=== PATIENT | male | born 1945 | race American Indian/Alaskan Native ===

== ENCOUNTER 2018-08-13 16:36 | Inpatient (IN) | payer MEDICARE ==
[2018-08-13] MEDS ORDERED: ASPIRIN PO ONE (17:06)
--- NOTE | 2018-08-13 17:27 | Emergency Department Report ---
ED Chest Pain HPI - General Chief Complaint: Chest Pain Stated Complaint: CHEST PAIN Time Seen by Provider: 08/13/18 17:21 Source: EMS Mode of arrival: Ambulatory Limitations: No Limitations - History of Present Illness Initial Comments: Patient is a 73-year-old male that since emergency room with complaints of severe crushing chest pain in the center chest radiating to his neck. Patient states the symptoms started an hour ago and were 10 out of 10 and after rest the symptoms have improved now to 100%. Patient describes the pain at this time as a pressure. Patient states that when the chest pain started he was working in his yard and developed crushing chest pain that radiated to his neck, diaphoresis and nausea. Patient states he also felt palpitations. Patient states he sat down and called 911 to bring him to the hospital. Patient states that since resting his pain is improved. Patient states the pain is better with rest and worse with exertion. MD Complaint: chest pain -: Sudden Onset: during exertion Pain Location: substernal, left chest Pain Radiation: neck Severity: mild Severity scale (0 -10): 1 Consistency: other (improving) Improves With: rest Worsens With: exertion re: nausea, diaphoresis, dyspnea. denies: vomting, sense of impending doom Other Symptoms: palpitations. denies: cough, fever, syncope, rash, acid taste in mouth, leg swelling, burping Treatments Prior to Arrival: none Aspirin use within the Past 7 Days: (1) Yes - Related Data On Oral Contraceptives: No Home Medications Medication Instructions Recorded Confirmed Last Taken Clopidogrel [Plavix] 75 mg PO QDAY 12/16/17 08/13/18 1 Day Ago ~12/15/17 Hydroxyurea [Hydrea] 500 mg PO BID 12/16/17 08/13/18 1 Day Ago ~12/15/17 Oxycodone HCl/Acetaminophen 1 each PO TID PRN 12/16/17 08/13/18 1 Day Ago [Percocet 10/325 mg] ~12/15/17 amLODIPine [Norvasc] 10 mg PO DAILY 12/16/17 08/13/18 1 Day Ago ~12/15/17 hydroCHLOROthiazide [HCTZ] 12.5 mg PO QDAY 12/16/17 08/13/18 1 Day Ago ~12/15/17 Aspirin [Aspirin EC] 81 mg PO DAILY 08/13/18 08/13/18 Unknown Allergies Allergy/AdvReac Type Severity Reaction Status Date / Time fentanyl [From Duragesic] AdvReac Vomiting Verified 12/16/17 10:13 Penicillins AdvReac Seizure Verified 12/16/17 10:12 Heart Score - HEART Score History: Highly suspicious EKG: Normal Age: > 65 Risk factors: No known risk factors Troponin: < normal limit HEART Score: 4 ED Review of Systems ROS: Stated complaint: CHEST PAIN Other details as noted in HPI Constitutional: diaphoresis. denies: chills, fever Eyes: denies: eye pain, eye discharge, vision change ENT: denies: ear pain, throat pain Respiratory: denies: cough, shortness of breath, wheezing Cardiovascular: chest pain, palpitations Endocrine: no symptoms reported Gastrointestinal: nausea. denies: abdominal pain, diarrhea Genitourinary: denies: urgency, dysuria Musculoskeletal: denies: back pain, joint swelling, arthralgia Skin: denies: rash, lesions Neurological: denies: headache, weakness, paresthesias Psychiatric: denies: anxiety, depression Hematological/Lymphatic: denies: easy bleeding, easy bruising ED Past Medical Hx - Past Medical History Previous Medical History?: Yes Hx Hypertension: Yes Hx CVA: No Hx Heart Attack/AMI: No Hx Congestive Heart Failure: No Hx Diabetes: No Hx Deep Vein Thrombosis: No Hx Pulmonary Embolism: No Hx GERD: No Hx Liver Disease: No Hx Renal Disease: No Hx of Cancer: No Hx Sickle Cell Disease: No Hx Arthritis: Yes Hx Headaches / Migraines: No Hx Seizures: No Hx Kidney Stones: No Hx Psychiatric Treatment: No Hx Asthma: No Hx COPD: No Hx Tuberculosis: No Hx Dementia: No Hx HIV: No 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 - Surgical History Past Surgical History?: No Hx Coronary Stent: No Hx Open Heart Surgery: No Hx Pacemaker: No Hx Internal Defibrillator: No Hx Cholecystectomy: No Hx Appendectomy: No Hx Breast Surgery: No - Family History Family history: no significant - Social History Smoking Status: Current Every Day Smoker Substance Use Type: None - Medications Home Medications: Home Medications Medication Instructions Recorded Confirmed Last Taken Type Clopidogrel [Plavix] 75 mg PO QDAY 12/16/17 08/13/18 1 Day Ago History ~12/15/17 Hydroxyurea [Hydrea] 500 mg PO BID 12/16/17 08/13/18 1 Day Ago History ~12/15/17 Oxycodone HCl/Acetaminophen 1 each PO TID PRN 12/16/17 08/13/18 1 Day Ago History [Percocet 10/325 mg] ~12/15/17 amLODIPine [Norvasc] 10 mg PO DAILY 12/16/17 08/13/18 1 Day Ago History ~12/15/17 hydroCHLOROthiazide [HCTZ] 12.5 mg PO QDAY 12/16/17 08/13/18 1 Day Ago History ~12/15/17 Aspirin [Aspirin EC] 81 mg PO DAILY 08/13/18 08/13/18 Unknown History ED Physical Exam - General Limitations: No Limitations General appearance: alert, in no apparent distress - Head Head exam: Present: atraumatic, normocephalic - Eye Eye exam: Present: normal appearance - ENT ENT exam: Present: mucous membranes moist - Neck Neck exam: Present: normal inspection - Respiratory Respiratory exam: Present: normal lung sounds bilaterally. Absent: respiratory distress - Cardiovascular Cardiovascular Exam: Present: regular rate, normal rhythm. Absent: systolic murmur, diastolic murmur, rubs, gallop - GI/Abdominal GI/Abdominal exam: Present: soft, normal bowel sounds. Absent: distended, tenderness, guarding - Rectal Rectal exam: Present: deferred - Extremities Exam Extremities exam: Present: normal inspection - Back Exam Back exam: Present: normal inspection - Neurological Exam Neurological exam: Present: alert, oriented X3 - Psychiatric Psychiatric exam: Present: normal affect, normal mood - Skin Skin exam: Present: warm, dry, intact, normal color. Absent: rash ED Course Vital Signs 08/13/18 08/13/18 08/13/18 16:57 17:00 17:15 Temperature 97.9 F Pulse Rate 75 77 70 Respiratory 11 L 14 9 L Rate Blood Pressure 124/73 124/73 Blood Pressure 124/73 [Right] O2 Sat by Pulse 99 100 100 Oximetry 08/13/18 08/13/18 08/13/18 17:31 17:45 19:13 Temperature 98.2 F Pulse Rate 69 72 76 Respiratory 11 L 11 L 14 Rate Blood Pressure 124/73 124/73 Blood Pressure 133/75 [Right] O2 Sat by Pulse 99 99 100 Oximetry 08/13/18 08/13/18 08/13/18 20:00 20:51 21:00 Temperature Pulse Rate 72 66 67 Respiratory 12 12 13 Rate Blood Pressure 126/69 126/69 117/64 Blood Pressure [Right] O2 Sat by Pulse 99 99 98 Oximetry 08/13/18 08/13/18 08/13/18 21:11 21:21 21:30 Temperature Pulse Rate 65 71 68 Respiratory 12 14 15 Rate Blood Pressure 117/64 117/64 117/64 Blood Pressure [Right] O2 Sat by Pulse 98 99 Oximetry 08/13/18 08/13/18 21:47 21:55 Temperature Pulse Rate 65 65 Respiratory 18 Rate Blood Pressure 126/64 Blood Pressure [Right] O2 Sat by Pulse 100 Oximetry - Reevaluation(s) Reevaluation #1: Discussed all results with patient. Patient will be admitted to the hospitalist service for further evaluation/treatment. pt agrees with plan of care and admission. 08/13/18 18:14 - Consultations Consultation #1: Hospitalist consulted for admission. Hospitalist will admit patient and assume care of patient. Bridging orders place. 08/13/18 18:15 ANDRE score - Andre Score Age > 65: (1) Yes Aspirin use within the Past 7 Days: (0) No 3 or more CAD Risk Factors: (0) No 2 or more Angina events in past 24 hrs: (0) No Known CAD with more than 50% Stenosis: (0) No Elevated Cardiac Markers: (0) No ST Deviation Greater than 0.5mm: (0) No ANDRE Score: 1 ED Medical Decision Making - Lab Data Result diagrams: 08/13/18 17:16 08/13/18 17:16 - EKG Data -: EKG Interpreted by Ms EKG shows normal: sinus rhythm, axis, intervals, QRS complexes, ST-T waves Rate: normal - Radiology Data Radiology results: image reviewed - Medical Decision Making Patient is a 73-year-old male that presents emergency room with complaints of chest pain, diaphoresis, and nausea. Patient's initial labwork unremarkable except for hypokalemia. Patient given oral and IV potassium. Patient admitted to the hospitalist service for further evaluation and treatment. She will require rule out ACS. Patient's chest x-ray negative. - Differential Diagnosis acs. cp Critical Care Time: Yes Critical care attestation.: If time is entered above; I have spent that time in minutes in the direct care of this critically ill patient, excluding procedure time. Critical Care Time: 35 minutes. ED Disposition Clinical Impression: Hypokalemia Chest pain Qualifiers: Chest pain type: unspecified Qualified Code(s): R07.9 - Chest pain, unspecified Disposition: OP ADMIT IP TO THIS HOSP Is pt being admited?: Yes Does the pt Need Aspirin: No Condition: Critical Time of Disposition: 18:12
[2018-08-13 17:30] LABS: Basophils % (Auto) 0.4 % (0.0-1.8); Eosinophils % (Auto) 0.8 % (0.0-4.3); Hematocrit 30.5 % (35.5-45.6); Hemoglobin 11.1 gm/dl (11.8-15.2); Lymphocytes # (Auto) 0.9 K/mm3 (1.2-5.4); Lymphocytes % (Auto) 22.6 % (13.4-35.0); Mean Corpuscular HGB Conc 37 % (32-34); Mean Corpuscular Volume 120 fl (84-94); Monocytes # (Auto) 0.3 K/mm3 (0.0-0.8); Monocytes % (Auto) 8.6 % (0.0-7.3); Platelet Count 431 K/mm3 (140-440); Red Blood Count 2.54 M/mm3 (3.65-5.03); Red Cell Distribution Width 15.8 % (13.2-15.2)
[2018-08-13 17:45] LABS: BUN/Creatinine Ratio 6; Blood Urea Nitrogen 6 mg/dL (9-20); Hemolysis Index 13
[2018-08-13] MEDS ORDERED: K-DUR PO ONE (17:52)
[2018-08-13] MEDS: KCL 10MEQ/100ML 10 MEQ/100 ML BAG IV SCH ×2 (18:36→20:04)
--- NOTE | 2018-08-13 19:45 | XRay Report ---
PROCEDURE: XR CHEST 1V AP TECHNIQUE: Chest radiograph single view. HISTORY: cp COMPARISONS: None . FINDINGS: Single frontal view of the chest was acquired. The heart is normal in size. The lungs appear mildly h yperinflated but clear. The pulmonary vasculature is within normal limits. IMPRESSION: Mild hyperinflation. Otherwise, no active disease in the chest This document is electronically signed by Johnson Kumar MD., August 13 2018 07:43:16 PM ET
[2018-08-14] MEDS ORDERED: NON-FORMULARY (Oxycodone Hcl/Acetaminophen [Percocet 10/325 Mg] 1 EACH) PO PRN (00:10)
[2018-08-14] MEDS ORDERED: SODIUM CHLORIDE FLUSH SYRINGE 10 ML IV PRN ×2 (00:11→06:57)
[2018-08-14] MEDS ORDERED: TYLENOL PO PRN ×2 (00:11→06:57)
[2018-08-14] MEDS ORDERED: ZOFRAN IV PRN ×2 (00:11→06:57)
[2018-08-14] MEDS: DILAUDID IV PRN ×3 (01:03→17:06)
[2018-08-14] MEDS: HYDREA PO SCH ×2 (01:05→09:42)
[2018-08-14] MEDS: SODIUM CHLORIDE FLUSH SYRINGE 10 ML IV SCH ×2 (05:32→17:07)
--- NOTE | 2018-08-14 06:55 | Event Note ---
Date: 08/13/18 See dictated H/p in reports Chest pain r/o IN protocol
[2018-08-14 07:35] LABS: BUN/Creatinine Ratio 8; Blood Urea Nitrogen 7 mg/dL (9-20); Calcium 8.8 mg/dL (8.4-10.2); Hemolysis Index 8
[2018-08-14] MEDS ORDERED: K-DUR PO ONE (08:00)
[2018-08-14] MEDS ORDERED: LEXISCAN IV ONE ×2 (08:21→09:00)
--- NOTE | 2018-08-14 08:25 | History and Physical Report ---
CHIEF COMPLAINT: Left-sided chest pain radiating to the neck 1 hour ago, around 1500 hours. HISTORY OF PRESENT ILLNESS: A 73-year-old with history of hypertension and coronary artery disease, presents with a crushing chest pain, radiation to the neck. Symptoms started about an hour ago prior to the Emergency Room admission. The patient's pain is about 10 on a scale of 1-10. It lasted for about 10 minutes. The patient was working in his yard when he developed crushing chest pain radiating to the neck associated with diaphoresis and nausea. The patient also felt palpitations. The patient called 911 to come to the hospital. No radiation of the chest pain to the neck. Diaphoresis. Otherwise, no syncope or shortness of breath. No recent travel. No fever or chills. PAST MEDICAL HISTORY: As mentioned hypertension, coronary artery disease and questionable polycythemia. PAST SURGICAL HISTORY: None. FAMILY HISTORY: Hypertension. SOCIAL HISTORY: Smokes about a half a pack to 3/4th pack a day. No alcohol. CURRENT MEDICATIONS: Plavix 75 daily, hydroxyurea 500 mg twice a day, amlodipine 10 mg once a day and hydrochlorothiazide 12.5 daily. REVIEW OF SYSTEMS: Significant for crushing left-sided chest pain associated with diaphoresis and radiation to the left side of the neck. No syncope. No seizures. Otherwise, review of systems is negative. PHYSICAL EXAMINATION: GENERAL: Elderly male, cooperative during examination. VITAL SIGNS: Blood pressure 124/65, temperature 98.2, pulse 62, respirations 16. HEENT: Unremarkable. Pupils equal and reactive. NECK: Supple, no lymphadenopathy, no thyromegaly. LUNGS: Clear to auscultation and percussion. Good air entry. CARDIOVASCULAR: S1, S2 heard. No gallop, no murmur, no rub. Apical impulse in left fifth intercostal space and midclavicular line. ABDOMEN: Soft and benign. No hepatosplenomegaly. No guarding, no rigidity. Hernial orifices are normal. EXTREMITIES: Good pedal pulses. CENTRAL NERVOUS SYSTEM: Alert and oriented x 4, nonfocal exam. SKIN: Normal. LABORATORY DATA: White count is 4000, H and H is 11.1 and 30.5, platelet count is 431,000. Electrolytes are normal except potassium, which is 4.8. Troponin is less than 0.010. EKG, normal sinus rhythm, normal axis, nonspecific ST-T wave changes. ASSESSMENT AND PLAN: 1. Chest pain, rule out myocardial infarction, chest pain protocol. The patient had chest pain with exertion and hence the Cardiology consulted. Lexiscan ordered. Serial troponins ordered. 2. Hypokalemia, supplemented with oral potassium and IV potassium. 3. Hypertension. Continue antihypertensives in the form of hydrochlorothiazide and amlodipine. 4. Coronary artery disease. Continue Plavix 75 daily. 5. Chronic pain. Continue oxycodone. 6. Deep venous thrombosis prophylaxis, Lovenox 40 mg subcutaneous daily and gastrointestinal prophylaxis. JOB# [id number] MARYJANE/ALANA MACE
[2018-08-14] MEDS: PERCOCET 5/325 PO PRN ×2 (09:43→17:21)
[2018-08-14] MEDS ORDERED: HALFPRIN EC PO SCH (10:00)
[2018-08-14] MEDS ORDERED: PLAVIX PO SCH (10:00)
[2018-08-14] MEDS ORDERED: PEPCID PO SCH (10:00)
[2018-08-14] MEDS: NORVASC PO SCH ×2 (10:00→12:44)
[2018-08-14] MEDS: HCTZ PO SCH ×2 (10:00→12:44)
[2018-08-14] MEDS ORDERED: SODIUM CHLORIDE FLUSH SYRINGE 10 ML IV SCH (10:00)
[2018-08-14] MEDS: KCL 10MEQ/100ML 10 MEQ/100 ML BAG IV SCH ×4 (10:11→15:27)
--- NOTE | 2018-08-14 10:47 | Consultation ---
History of Present Illness Consult date: 08/14/18 Consult reason: chest pain History of present illness: 73 YO man with PAD who presented to ED with episode of elevated BP and chest pain. He describes the pain as a pressure type of sensation with radiation to his neck. He reports he experiences similar chest pain when his BP is elevated. He had been getting BP readings in the 190s/110s at home. Of note, he has long standing history of similar chest pain. He underwent coronary angiogram on 12/21/12 which revealed non-obstructive CAD. Most recently he was hospitalized in 12/2017 due to chest pain and underwent MPI on 12/18/17 which revealed normal perfusion. His chest pain has now completely resolved. OK has been ruled out with negative cardiac enzymes. ECG reveals sinus rhythm and is otherwise unremarkable. Past History Past Medical History: hypertension, PVD Social history: smoking Family history: hypertension Medications and Allergies Allergies Allergy/AdvReac Type Severity Reaction Status Date / Time fentanyl [From Duragesic] AdvReac Vomiting Verified 12/16/17 10:13 Penicillins AdvReac Seizure Verified 12/16/17 10:12 Home Medications Medication Instructions Recorded Confirmed Last Taken Type Clopidogrel [Plavix] 75 mg PO QDAY 12/16/17 08/13/18 1 Day Ago History ~12/15/17 Hydroxyurea [Hydrea] 500 mg PO BID 12/16/17 08/13/18 1 Day Ago History ~12/15/17 Oxycodone HCl/Acetaminophen 1 each PO TID PRN 12/16/17 08/13/18 1 Day Ago History [Percocet 10/325 mg] ~12/15/17 amLODIPine [Norvasc] 10 mg PO DAILY 12/16/17 08/13/18 1 Day Ago History ~12/15/17 hydroCHLOROthiazide [HCTZ] 12.5 mg PO QDAY 12/16/17 08/13/18 1 Day Ago History ~12/15/17 Aspirin [Aspirin EC] 81 mg PO DAILY 08/13/18 08/13/18 Unknown History Active Meds: Active Medications Acetaminophen (Tylenol) 650 mg PO Q4H PRN PRN Reason: Pain MILD(1-3)/Fever >100.5/OCHOA Amlodipine Besylate (Norvasc) 10 mg PO DAILY [facility] Aspirin (Halfprin Ec) 81 mg PO DAILY GET Last Admin: 08/14/18 09:43 Dose: 81 mg Documented by: Clopidogrel Bisulfate (Plavix) 75 mg PO QDAY [facility] Last Admin: 08/14/18 09:42 Dose: 75 mg Documented by: Enoxaparin Sodium (Lovenox) 40 mg SUB-Q QDAY@2200 [facility] Famotidine (Pepcid) 20 mg PO BID [facility] Last Admin: 08/14/18 09:44 Dose: 20 mg Documented by: Hydrochlorothiazide (Hctz) 12.5 mg PO QDAY [facility] Hydromorphone HCl (Dilaudid) 0.5 mg IV Q3H PRN PRN Reason: Pain , Severe (7-10) Last Admin: 08/14/18 01:03 Dose: 0.5 mg Documented by: Hydroxyurea (Hydrea) 500 mg PO BID [facility] Last Admin: 08/14/18 09:42 Dose: 500 mg Documented by: Potassium Chloride (Kcl 10meq/100ml) 10 meq in 100 mls @ 100 mls/hr IV Q1H [facility] Stop: 08/14/18 11:59 Last Admin: 08/14/18 10:11 Dose: 100 mls/hr Documented by: Ondansetron HCl (Zofran) 4 mg IV Q8H PRN PRN Reason: Nausea And Vomiting Oxycodone/Acetaminophen (Percocet 5/325) 1 tab PO Q6H PRN PRN Reason: Pain, Moderate (4-6) Last Admin: 08/14/18 09:43 Dose: 1 tab Documented by: Sodium Chloride (Sodium Chloride Flush Syringe 10 Ml) 10 ml IV BID [facility] Last Admin: 08/14/18 05:32 Dose: Not Given Documented by: Sodium Chloride (Sodium Chloride Flush Syringe 10 Ml) 10 ml IV PRN PRN PRN Reason: LINE FLUSH Review of Systems All systems: negative (per hpi) Physical Examination Vital Signs Pulse Resp Pulse Ox 75 11 L 99 08/13/18 16:57 08/13/18 16:57 08/13/18 16:57 Last Vital Signs Temp 98.4 F 08/14/18 03:53 Pulse 69 08/14/18 03:53 Resp 18 08/14/18 03:53 BP 108/60 08/14/18 03:53 Pulse Ox 97 08/14/18 03:53 General appearance: no acute distress HEENT: Positive: PERRL, EOMI Neck: Positive: neck supple. Negative: JVD/HJR Cardiac: Positive: Reg Rate and Rhythm Lungs: Positive: Normal Exam, clear to auscultation Abdomen: Positive: Soft, Active Bowel Sounds Skin: Positive: Clear Extremities: Absent: edema Results 08/13/18 17:16 08/14/18 05:48 Cardiac Enzymes 08/13/18 08/13/18 08/13/18 Range/Units 17:16 17:16 18:03 WBC 4.0 L (4.5-11.0) K/mm3 RBC 2.54 L (3.65-5.03) M/mm3 Hgb 11.1 L (11.8-15.2) gm/dl Hct 30.5 L (35.5-45.6) % MCV 120 H (84-94) fl MCH 44 H (28-32) pg MCHC 37 H (32-34) % RDW 15.8 H (13.2-15.2) % Plt Count 431 (140-440) K/mm3 Lymph % (Auto) 22.6 (13.4-35.0) % [place] % (Auto) 8.6 H (0.0-7.3) % Eos % (Auto) 0.8 (0.0-4.3) % Baso % (Auto) 0.4 (0.0-1.8) % Lymph # 0.9 L (1.2-5.4) K/mm3 [place] # 0.3 (0.0-0.8) K/mm3 Eos # 0.0 (0.0-0.4) K/mm3 Baso # 0.0 (0.0-0.1) K/mm3 Seg Neutrophils % 67.6 (40.0-70.0) % Seg Neutrophils # 2.7 (1.8-7.7) K/mm3 Sodium 140 (137-145) mmol/L Potassium 2.8 L* (3.6-5.0) mmol/L Chloride 99.9 (98-107) mmol/L Carbon Dioxide 28 (22-30) mmol/L Anion Gap 15 mmol/L BUN 6 L (9-20) mg/dL Creatinine 1.0 (0.8-1.5) mg/dL Estimated GFR > 60 ml/min BUN/Creatinine Ratio 6 % Glucose 99 (75-100) mg/dL Hemoglobin A1c (4-6) % Calcium 9.0 (8.4-10.2) mg/dL Magnesium 1.80 (1.7-2.3) mg/dL Troponin T < 0.010 (0.00-0.029) ng/mL 08/13/18 08/13/18 08/14/18 Range/Units 19:49 22:34 00:19 WBC (4.5-11.0) K/mm3 RBC (3.65-5.03) M/mm3 Hgb (11.8-15.2) gm/dl Hct (35.5-45.6) % MCV (84-94) fl MCH (28-32) pg MCHC (32-34) % RDW (13.2-15.2) % Plt Count (140-440) K/mm3 Lymph % (Auto) (13.4-35.0) % [place] % (Auto) (0.0-7.3) % Eos % (Auto) (0.0-4.3) % Baso % (Auto) (0.0-1.8) % Lymph # (1.2-5.4) K/mm3 [place] # (0.0-0.8) K/mm3 Eos # (0.0-0.4) K/mm3 Baso # (0.0-0.1) K/mm3 Seg Neutrophils % (40.0-70.0) % Seg Neutrophils # (1.8-7.7) K/mm3 Sodium (137-145) mmol/L Potassium (3.6-5.0) mmol/L Chloride (98-107) mmol/L Carbon Dioxide (22-30) mmol/L Anion Gap mmol/L BUN (9-20) mg/dL Creatinine (0.8-1.5) mg/dL Estimated GFR ml/min BUN/Creatinine Ratio % Glucose (75-100) mg/dL Hemoglobin A1c 5.6 (4-6) % Calcium (8.4-10.2) mg/dL Magnesium (1.7-2.3) mg/dL Troponin T < 0.010 < 0.010 (0.00-0.029) ng/mL 08/14/18 08/14/18 08/14/18 Range/Units 00:19 05:48 05:48 WBC (4.5-11.0) K/mm3 RBC (3.65-5.03) M/mm3 Hgb (11.8-15.2) gm/dl Hct (35.5-45.6) % MCV (84-94) fl MCH (28-32) pg MCHC (32-34) % RDW (13.2-15.2) % Plt Count (140-440) K/mm3 Lymph % (Auto) (13.4-35.0) % [place] % (Auto) (0.0-7.3) % Eos % (Auto) (0.0-4.3) % Baso % (Auto) (0.0-1.8) % Lymph # (1.2-5.4) K/mm3 [place] # (0.0-0.8) K/mm3 Eos # (0.0-0.4) K/mm3 Baso # (0.0-0.1) K/mm3 Seg Neutrophils % (40.0-70.0) % Seg Neutrophils # (1.8-7.7) K/mm3 Sodium 141 (137-145) mmol/L Potassium 3.1 L (3.6-5.0) mmol/L Chloride 101.6 (98-107) mmol/L Carbon Dioxide 27 (22-30) mmol/L Anion Gap 16 mmol/L BUN 7 L (9-20) mg/dL Creatinine 0.9 (0.8-1.5) mg/dL Estimated GFR > 60 ml/min BUN/Creatinine Ratio 8 % Glucose 98 (75-100) mg/dL Hemoglobin A1c (4-6) % Calcium 8.8 (8.4-10.2) mg/dL Magnesium (1.7-2.3) mg/dL Troponin T < 0.010 < 0.010 (0.00-0.029) ng/mL CBC 08/13/18 Range/Units 17:16 WBC 4.0 L (4.5-11.0) K/mm3 RBC 2.54 L (3.65-5.03) M/mm3 Hgb 11.1 L (11.8-15.2) gm/dl Hct 30.5 L (35.5-45.6) % Plt Count 431 (140-440) K/mm3 Lymph # 0.9 L (1.2-5.4) K/mm3 [place] # 0.3 (0.0-0.8) K/mm3 Eos # 0.0 (0.0-0.4) K/mm3 Baso # 0.0 (0.0-0.1) K/mm3 Comprehensive Metabolic Panel 08/13/18 08/14/18 Range/Units 17:16 05:48 Sodium 140 141 (137-145) mmol/L Potassium 2.8 L* 3.1 L (3.6-5.0) mmol/L Chloride 99.9 101.6 (98-107) mmol/L Carbon Dioxide 28 27 (22-30) mmol/L BUN 6 L 7 L (9-20) mg/dL Creatinine 1.0 0.9 (0.8-1.5) mg/dL Glucose 99 98 (75-100) mg/dL Calcium 9.0 8.8 (8.4-10.2) mg/dL Assessment and Plan Episode of recurrent chest pain associated with elevated BP Now resolved and OK ruled out. Negative MPI about 6 months ago PAD Htn: Labile Recommend: Continue current therapy Repeat coronary angiogram if he has future recurrence of chest pain suggestive of angina Monitor BP and adjust medications as needed F/U with Dr. Logan Wang at [facility] at time of discharge.
[2018-08-14 16:08] VITALS: BP 135/65
--- NOTE | 2018-08-14 16:20 | Discharge Summary ---
Providers - Providers Date of Admission: 08/13/18 18:29 Date of discharge: 08/14/18 Attending physician: CRISTOBAL GONZALES 08/14/18 06:59 Consult to Physician [CONS] Routine Comment: Consulting Provider: YENI MARISCAL Physician Instructions: Reason For Exam: Chest pain Primary care physician: SALT LIFTER Hospitalization Condition: Good Hospital course: Patient 73-year-old male with a history of PAD, thrombocytosis presents with an acute episode of chest pain and malignant hypertension. In further history patient states that he only has chest pain when his blood pressure shoots up otherwise he is comfortable. Patient presented today with negative cardiac isoenzymes EKG unremarkable. Evaluated by cardiology recommended follow-up with Dr. Wang in 2 weeks. Patient hospital course was complicated by hypokalemia. Patient was given several runs of potassium and will be given by mouth potassium upon discharge. Patient will follow-up with Dr. kruger in 3-5 days for follow-up potassium. One possible etiology of potassium boluses diarrhea and the etiology of his hypokalemia could've been hydrochlorothiazide. I have discontinued the hydrochlorothiazide in his losartan and patient is given losartan alone. Along with amlodipine. Disposition: DC-01 TO HOME OR SELFCARE - Discharge Diagnoses (1) Chest pain Status: Acute Qualifiers: Chest pain type: unspecified Qualified Code(s): R07.9 - Chest pain, unspecified (2) Hypokalemia Status: Acute Core Measure Documentation - Palliative Care Palliative Care/ Comfort Measures: Not Applicable - Core Measures Any of the following diagnoses?: none Exam - Constitutional Vitals: Temp Pulse Resp BP Pulse Ox 97.8 F 69 18 135/65 99 08/14/18 15:53 08/14/18 10:00 08/14/18 15:53 08/14/18 15:53 08/14/18 10:00 General appearance: Present: no acute distress, well-nourished - EENT Eyes: Present: PERRL ENT: hearing intact, clear oral mucosa - Neck Neck: Present: supple, normal ROM - Respiratory Respiratory effort: normal Respiratory: bilateral: CTA - Cardiovascular Heart Sounds: Present: S1 & S2. Absent: rub, click - Extremities Extremities: pulses symmetrical, No edema Peripheral Pulses: within normal limits - Abdominal General gastrointestinal: Present: soft, non-tender, non-distended, normal bowel sounds Male genitourinary: Present: normal - Integumentary Integumentary: Present: clear, warm, dry - Musculoskeletal Musculoskeletal: gait normal, strength equal bilaterally - Psychiatric Psychiatric: appropriate mood/affect, intact judgment & insight - Neurologic Neurologic: CNII-XII intact, moves all extremities Plan Activity: no restrictions, fall precautions Diet: low salt, low carbohydrate Prescriptions: Oxycodone HCl/Acetaminophen [Percocet 10/325 mg] 1 each PO TID PRN #20 tablet PRN Reason: Pain
[2018-08-14] MEDS ORDERED: LOVENOX SUB-Q SCH (22:00)
== END 2018-08-14 17:32 | disposition home or self-care (01) | DRG 641 ==
LOC: ED 16:36 → 4A 18:29
PROVIDERS: ADMIT Internal Medicine; ATTEND Internal Medicine
DX: E87.6 Hypokalemia (principal); R07.9 Chest pain, unspecified; I73.9 Peripheral vascular disease, unspecified; I10 Essential (primary) hypertension; T50.2X5A Adverse effect of carbonic-anhydrase inhibitors, benzothiadiazides and other diuretics, initial encounter; F17.200 Nicotine dependence, unspecified, uncomplicated; I25.10 Atherosclerotic heart disease of native coronary artery without angina pectoris; G89.29 Other chronic pain; M19.90 Unspecified osteoarthritis, unspecified site; Y92.89 Other specified places as the place of occurrence of the external cause; Z82.49 Family history of ischemic heart disease and other diseases of the circulatory system; Z88.0 Allergy status to penicillin; Z79.899 Other long term (current) drug therapy; Z79.82 Long term (current) use of aspirin
CPT/HCPCS: 36415; 71045; 80048; 83036; 83735; 84484; 85025; 87116; 93005; 93010; 99406; G0378; J1170; J2785; J3480

== ENCOUNTER 2018-12-12 19:44 | Inpatient (IN) | payer MEDICARE ==
--- NOTE | 2018-12-12 20:06 | Event Note ---
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 PMH HTN High Platelet This initial assessment/diagnostic orders/clinical plan/treatment(s) is/are subject to change based on patients health status, clinical progression and re- assessment by fellow clinical providers in the ED. Further treatment and workup at subsequent clinical providers discretion. Patient/guardian urged not to elope from the ED as their condition may be serious if not clinically assessed and managed. Initial orders include:
[2018-12-12 20:41] LABS: Basophils % (Auto) 0.9 % (0.0-1.8); Eosinophils % (Auto) 0.9 % (0.0-4.3); Hematocrit 30.7 % (35.5-45.6); Hemoglobin 10.8 gm/dl (11.8-15.2); Lymphocytes % (Auto) 39.4 % (13.4-35.0); Mean Corpuscular HGB Conc 35 % (32-34); Monocytes # (Auto) 0.3 K/mm3 (0.0-0.8); Monocytes % (Auto) 9.9 % (0.0-7.3); Platelet Count 412 K/mm3 (140-440); Red Blood Count 2.42 M/mm3 (3.65-5.03); Red Cell Distribution Width 16.4 % (13.2-15.2)
[2018-12-12 20:42] LABS: Mean Corpuscular Volume 127 fl (84-94)
[2018-12-12 20:51] LABS: INR 1.12 (0.87-1.13); Partial Thromboplastin Time 32.7 Sec. (24.2-36.6)
[2018-12-12] MEDS ORDERED: ZOFRAN IV ONE (21:13)
[2018-12-12] MEDS ORDERED: MORPHINE IV ONE (21:13)
[2018-12-12 21:15] LABS: Alanine Aminotransferase 7 units/L (7-56); Albumin 4.6 g/dL (3.9-5); BUN/Creatinine Ratio 6; Blood Urea Nitrogen 8 mg/dL (9-20); Calcium 9.2 mg/dL (8.4-10.2); Hemolysis Index 5
--- NOTE | 2018-12-12 21:24 | Emergency Department Report ---
HPI - General Chief Complaint: Chest Pain Time Seen by Provider: 12/12/18 21:04 - HPI HPI: Room 1 The patient is 73-year-old male presenting with chief complaint chest pain and headache. Patient states symptoms began this evening for diffuse headache and substernal chest pain described as pressure. Patient also complains of discomfort in the right side of his neck. Patient admits to shortness of breath and diaphoresis with this chest pain but denies nausea or vomiting. Patient states his blood pressure has been labile seen elevations as high as 215/100. 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, adrenal adenoma - Surgical History Past Surgical History?: Yes Additional Surgical History: Stent in right groin - Family History Family history: no significant - Social History Smoking Status: Current Every Day Smoker Substance Use Type: None (denies illicit drug use) - Medications Home Medications: Home Medications Medication Instructions Recorded Confirmed Last Taken Type Clopidogrel [Plavix] 75 mg PO QDAY 12/16/17 08/13/18 1 Day Ago History ~12/15/17 Hydroxyurea [Hydrea] 500 mg PO BID 12/16/17 08/13/18 1 Day Ago History ~12/15/17 amLODIPine [Norvasc] 10 mg PO DAILY 12/16/17 08/13/18 1 Day Ago History ~12/15/17 Aspirin [Aspirin EC] 81 mg PO DAILY 08/13/18 08/13/18 Unknown History Oxycodone HCl/Acetaminophen 1 each PO TID PRN #20 tablet 08/14/18 Unknown Rx [Percocet 10/325 mg] ED Review of Systems ROS: Stated complaint: CHEST PAIN Other details as noted in HPI Constitutional: diaphoresis Eyes: denies: eye pain ENT: denies: throat pain Respiratory: shortness of breath Cardiovascular: chest pain Endocrine: no symptoms reported Gastrointestinal: denies: nausea, vomiting Genitourinary: denies: dysuria Musculoskeletal: denies: back pain Neurological: headache Physical Exam - Physical Exam Vital Signs: Vital Signs 12/12/18 12/12/18 19:57 20:02 Temperature 98.2 F 98.2 F Pulse Rate 79 79 Respiratory 18 16 Rate Blood Pressure 140/67 Blood Pressure 140/67 [Right] O2 Sat by Pulse 100 99 Oximetry Physical Exam: GENERAL: The patient is well-developed well-nourished male lying on stretcher not appearing to be in acute distress. [] HEENT: Normocephalic. Atraumatic. Extraocular motions are intact. Patient has moist mucous membranes. NECK: Supple. No carotid bruits auscultated CHEST/LUNGS: Clear to auscultation. There is no respiratory distress noted. HEART/CARDIOVASCULAR: Regular. There is no tachycardia. There is no gallop rub or murmur. ABDOMEN: Abdomen is soft, nontender. Patient has normal bowel sounds. There is no abdominal distention. SKIN: There is no rash. There is no edema. There is no diaphoresis. NEURO: The patient is awake, alert, and oriented. The patient is cooperative. The patient has normal speech MUSCULOSKELETAL: There is no evidence of acute injury. ED Course Vital Signs 12/12/18 12/12/18 19:57 20:02 Temperature 98.2 F 98.2 F Pulse Rate 79 79 Respiratory 18 16 Rate Blood Pressure 140/67 Blood Pressure 140/67 [Right] O2 Sat by Pulse 100 99 Oximetry ED Medical Decision Making - Lab Data Result diagrams: 12/12/18 20:09 12/12/18 20:09 - EKG Data -: EKG Interpreted by Me EKG shows normal: sinus rhythm Rate: normal - EKG Data When compared to previous EKG there are: changes noted Interpretation: subendocardial ischemia (new ST depression leads V4, V5, V6) - Radiology Data Radiology results: report reviewed (CT head), image reviewed (CT head, chest x- ray) interpreted by me: Chest x-ray-no focal infiltrates, no pneumothorax [facility] [address] [place] [address] Cat Scan Report Signed Patient: SHALA VALERO JR MR#: [id number] 46 : 1945 Acct:[id number] Age/Sex: 73 / M ADM Date: 12/12/18 Loc: ED Attending Dr: Ordering Physician: FILEMON DOTY Date of Service: 12/12/18 Procedure(s): CT head/brain wo con Accession Number(s): [id number] cc: FILEMON DOTY PROCEDURE: CT head without contrast. TECHNIQUE: Computerized tomography of the head was performed without contrast material. CT DOSE LENGTH PRODUCT: Not provided mGycm HISTORY: Headache, platelet disorder. COMPARISONS: None. FINDINGS: The ventricles are normal in size. The sheridan matter and white matter appear normal. There are no mass lesions. There is no intracranial hemorrhage. The calvarium appears intact. The mastoid air cells and paranasal sinuses are clear as far as visualized. IMPRESSION: Normal study. This document is electronically signed by Evangelista Israel MD., December 12 2018 09:44:35 PM ET Transcribed By: MRM Dictated By: EVANGELISTA ISRAEL MD Electronically Authenticated By: EVANGELISTA ISRAEL MD Signed Date/Time: 12/12/182145 DD/ 53 TD/TT: 12/12/182053 - Differential Diagnosis ACS, pericarditis, GERD, ICH Critical care attestation.: If time is entered above; I have spent that time in minutes in the direct care of this critically ill patient, excluding procedure time. ED Disposition Clinical Impression: Chest pain, ST segment depression, Headache Disposition: OP ADMIT IP TO THIS HOSP Is pt being admited?: Yes Does the pt Need Aspirin: Yes Condition: Stable Instructions: Chest Pain (ED) Referrals: PERFECTO LUNA MD [Primary Care Provider] - 3-5 Days Time of Disposition: 21:59 (hospitalist paged (Dr Aiken))
[2018-12-12 21:44] LABS: Bilirubin,Urine NEG (Negative); Blood,Urine NEG (Negative); Color,Urine Colorless (Yellow); Protein,Urine <15 mg/dL mg/dL (Negative); Urobilinogen,Urine < 2.0 mg/dL (<2.0); WBC,Urine < 1.0 /HPF (0.0-6.0)
--- NOTE | 2018-12-12 21:46 | Cat Scan Report ---
PROCEDURE: CT head without contrast. TECHNIQUE: Computerized tomography of the head was performed without contrast material. CT DOSE LENGTH PRODUCT: Not provided mGycm HISTORY: Headache, platelet disorder. COMPARISONS: None. FINDINGS: The ventricles are normal in size. The sheridan matter and white matter appear normal. There are no mass lesions. There is no intracranial hemorrhage. The calvarium appears intact. The mastoid air cells and paranasal sinuses are clear as far as visualized. IMPRESSION: Normal study. This document is electronically signed by Evangelista Wynn MD., December 12 2018 09:44:35 PM ET
[2018-12-12] MEDS ORDERED: ASPIRIN PO ONE (22:00)
--- NOTE | 2018-12-12 22:55 | XRay Report ---
PROCEDURE: XR CHEST 1V AP TECHNIQUE: Chest radiograph single view. HISTORY: chest pain COMPARISONS: None . FINDINGS: Frontal view of the chest was acquired and compared to the prior examination of August 13 19. The heart is normal in size. The lungs appear clear. The pleura and mediastinum are within normal [place] its. IMPRESSION: No active disease in the chest This document is electronically signed by Johnson Kumar MD., December 12 2018 10:53:26 PM ET
[2018-12-12] MEDS ORDERED: NITROSTAT SL PRN (23:00)
[2018-12-12] MEDS ORDERED: TYLENOL PO PRN (23:00)
[2018-12-12] MEDS ORDERED: ZOFRAN IV PRN (23:01)
[2018-12-12] MEDS ORDERED: TYLENOL ONE (23:47)
[2018-12-12] MEDS ORDERED: PERCOCET 5/325 PO ONE (23:50)
[2018-12-12] MEDS ORDERED: PERCOCET 5/325 ONE (23:52)
[2018-12-13 01:09] LABS: Creatine Kinase MB 1.8 ng/mL (0.0-4.0)
[2018-12-13] MEDS: NITRO-BID 2% TP SCH ×3 (01:37→09:49)
[2018-12-13] MEDS: MORPHINE IV PRN ×2 (01:38→09:59)
--- NOTE | 2018-12-13 02:13 | History and Physical Report ---
CHIEF COMPLAINT: Chest pain. HISTORY OF PRESENT ILLNESS: The patient is a 73-year-old male who said he has been having chest pain that will cause pressure in the retrosternal and precordial area. Pain was associated with discomfort in the right side of the neck and headache. There is also history of associated shortness of breath and diaphoresis, but there was no history of nausea or vomiting. The patient said that his blood pressure has been going up and down for quite some time now. The patient also complains about headache. There was no history of cough, no history of fever or chills. PAST MEDICAL HISTROY: The patient's past medical history is pertinent for hypertension, arthritis, thrombocythemia or high platelet level and adrenal adenoma. PAST SURGICAL HISTORY: Pertinent for stent placement in the right groin area. FAMILY HISTORY: Family history was reviewed and noncontributory. SOCIAL HISTORY: The patient smokes cigarette. Does not drink alcohol and does not use illicit drugs. MEDICATIONS: The patient is on Plavix 75 mg by mouth daily, hydroxyurea 500 mg by mouth twice daily, amlodipine 10 mg by mouth daily, aspirin 81 mg by mouth daily, Percocet 10/325 mg by mouth 3 times daily as needed for pain. ALLERGIES: THE PATIENT IS ALLERGIC TO FENTANYL AND PENICILLIN. REVIEW OF SYSTEMS: CONSTITUTIONAL: There is no fever, no chills. Diaphoresis is present. HEENT: Headache is present. No sore throat. CARDIOVASCULAR SYSTEM: Chest pain is present. No orthopnea. RESPIRATORY SYSTEM: Shortness of breath is present. No cough. GASTROINTESTINAL SYSTEM: There is no nausea, no vomiting, no abdominal pain, diarrhea or constipation. NEUROLOGICAL SYSTEM: There is no numbness, no dizziness and no altered mental status. MUSCULOSKELETAL SYSTEM: There is pain in the right side of the neck, but no joint pain or joint swelling. DERMATOLOGICAL SYSTEM: There is no skin rash or itching. GENITOURINARY SYSTEM: There is no dysuria, hematuria, or flank pain. Rest of system review is normal. PHYSICAL EXAMINATION: GENERAL: At the time of exam, the patient was found to be alert and oriented x 3, not in acute distress. VITAL SIGNS: The patient's vital signs shows normal temperature with pulse of 81 and respiration pattern. Blood pressure 122/64, O2 sat of 100% on room air. HEENT: Showed pupils to be equal, round, reactive to light and accommodating. Extraocular muscles are intact. NECK: Supple with no JVD or carotid bruit. CARDIOVASCULAR SYSTEM: Showed normal first and second heart sounds with no gallops or murmurs. RESPIRATORY SYSTEM: Show good air entry on both sides of the lungs with no abnormal breath sounds. GASTROINTESTINAL SYSTEM: Show abdomen to be full, soft, nontender with no organomegaly or rigidity. NEUROLOGIC: Neuro exam shows no focal deficit. MUSCULOSKELETAL SYSTEM: Show no joint swelling or tenderness. DERMATOLOGICAL SYSTEM: Show no skin rash. GENITOURINARY SYSTEM: Show no costovertebral angle tenderness. PERTINENT LABORATORY AND IMAGING STUDIES: The patient had chest x-ray done that shows no acute cardiopulmonary findings and the patient also had CT of the head without contrast done that shows negative studies. Lab results, the patient has CBC done with low white count of 2600 with low hemoglobin of 10.8 and low hematocrit of 30.7 and normal platelet level with high MCV of 127. The patient's CBC differential show elevated lymphocyte count of 39.4% with elevated monocyte count of 9.9%. The patient's coagulation studies came back unremarkable. The patient's chemistry was unremarkable. Cardiac enzymes came back normal. The patient's urinalysis was unremarkable. DIAGNOSES: 1. Chest pain. 2. Hypertension. PLAN OF CARE: 1. The patient will be admitted to telemetry. 2. The patient will have cardiac enzymes involving troponin. Total CK and CK-MB checked every 6 hours for 2 more levels. 3. The patient will be n.p.o. for Lexiscan stress test in the morning. 4. The patient will be on IV morphine 2 mg every 3 hours as needed for pain and IV Zofran 4 mg every 8 hours as needed for nausea and vomiting. 5. The patient will be on nitro paste 1/2 inch to anterior chest wall q.i.d. and will also be on Nitrostat 0.4 mg sublingual every 5 minutes for breakthrough chest pain. 6. The patient will be on aspirin 325 mg by mouth daily and will be on Tylenol 650 mg by mouth every 4 hours for fever and headache. 7. The patient will be on heparin 5000 units subcutaneous q.12 hours for DVT prophylaxis. 8. The patient will be on oxygen by nasal cannula 2 liters per minute. 9. The patient will remain n.p.o. for Lexiscan stress test in the morning. 10. The patient will be on his home medication as shown in the medication reconciliation section. JOB# [id number] OCN/NTS
[2018-12-13 06:42] LABS: Creatine Kinase MB 1.5 ng/mL (0.0-4.0)
[2018-12-13] MEDS ORDERED: LEXISCAN IV ONE (07:02)
[2018-12-13] MEDS: ASPIRIN PO SCH (09:49)
[2018-12-13] MEDS: HEPARIN SUB-Q SCH ×2 (09:50→22:33)
[2018-12-13] MEDS ORDERED: NORVASC PO SCH (10:00)
[2018-12-13 10:28] LABS: Creatine Kinase MB 1.4 ng/mL (0.0-4.0)
[2018-12-13] MEDS ORDERED: NON-FORMULARY (Oxycodone Hcl/Acetaminophen [Percocet 10/325 Mg] 1 EACH) PO PRN (10:54)
--- NOTE | 2018-12-13 10:58 | Progress Note ---
Assessment and Plan Assessment and plan: --Atypical chest pain; probably noncardiac Cardiac enzyme, echocardiogram, Patient had recent negative heart cath And negative stress test Stress test was canceled today, consult cardiology for further recommendation --Hypertension; uncontrolled, resume home antihypertensives When necessary medications --Ongoing tobacco use; smoking cessation counseling Nicotine patch as needed Supportive care --Dyslipidemia; continue statin --DVT prophylaxis; Lovenox Monitor closely and adjust management as needed Follow cardiology evaluation and recommendations Possible discharge in 1-2 days if stable Plan of care is reviewed with the patient and his nurse History Interval history: Patient was admitted with chest pain, stress test was scheduled However cardiology has canceled his test as patient had workup in the office Patient complains of vague intermittent chest pain Denies shortness of breath The patient is also uncontrolled Alert awake oriented 3 Vital signs reviewed Hospitalist Physical - Constitutional Vitals: Temp Pulse Resp BP Pulse Ox 97.9 F 64 18 128/64 99 12/13/18 08:16 12/13/18 08:16 12/13/18 08:16 12/13/18 08:16 12/13/18 08:16 General appearance: Present: no acute distress, well-nourished - EENT Eyes: Present: PERRL, EOM intact - Neck Neck: Present: supple, normal ROM - Respiratory Respiratory effort: normal Respiratory: bilateral: diminished, rales, negative: rhonchi, wheezing - Cardiovascular Rhythm: regular Heart Sounds: Present: S1 & S2 - Extremities Extremities: no ischemia, pulses intact - Abdominal General gastrointestinal: soft, non-tender, non-distended, normal bowel sounds - Integumentary Integumentary: Present: clear, warm - Psychiatric Psychiatric: appropriate mood/affect, cooperative - Neurologic Neurologic: CNII-XII intact, moves all extremities Results - Labs CBC & Chem 7: 12/12/18 20:09 12/12/18 20:09 Labs: Laboratory Last Values WBC 2.6 K/mm3 (4.5-11.0) L 12/12/18 20:09 RBC 2.42 M/mm3 (3.65-5.03) L 12/12/18 20:09 Hgb 10.8 gm/dl (11.8-15.2) L 12/12/18 20:09 Hct 30.7 % (35.5-45.6) L 12/12/18 20:09 MCV 127 fl (84-94) H 12/12/18 20:09 MCH 45 pg (28-32) H 12/12/18 20:09 MCHC 35 % (32-34) H 12/12/18 20:09 RDW 16.4 % (13.2-15.2) H 12/12/18 20:09 Plt Count 412 K/mm3 (140-440) 12/12/18 20:09 Lymph % (Auto) 39.4 % (13.4-35.0) H 12/12/18 20:09 [place] % (Auto) 9.9 % (0.0-7.3) H 12/12/18 20:09 Eos % (Auto) 0.9 % (0.0-4.3) 12/12/18 20:09 Baso % (Auto) 0.9 % (0.0-1.8) 12/12/18 20:09 Lymph # 1.0 K/mm3 (1.2-5.4) L 12/12/18 20:09 [place] # 0.3 K/mm3 (0.0-0.8) 12/12/18 20:09 Eos # 0.0 K/mm3 (0.0-0.4) 12/12/18 20:09 Baso # 0.0 K/mm3 (0.0-0.1) 12/12/18 20:09 Seg Neutrophils % 48.9 % (40.0-70.0) 12/12/18 20:09 Seg Neutrophils # 1.3 K/mm3 (1.8-7.7) L 12/12/18 20:09 PT 14.1 Sec. (12.2-14.9) 12/12/18 20:09 INR 1.12 (0.87-1.13) 12/12/18 20:09 APTT 32.7 Sec. (24.2-36.6) 12/12/18 20:09 Sodium 141 mmol/L (137-145) 12/12/18 20:09 Potassium 3.7 mmol/L (3.6-5.0) 12/12/18 20:09 Chloride 103.1 mmol/L (98-107) 12/12/18 20:09 Carbon Dioxide 25 mmol/L (22-30) 12/12/18 20:09 17 mmol/L 12/12/18 20:09 BUN 8 mg/dL (9-20) L 12/12/18 20:09 1.4 mg/dL (0.8-1.5) 12/12/18 20:09 Estimated GFR > 60 ml/min 12/12/18 20:09 6 % 12/12/18 20:09 Glucose 112 mg/dL (75-100) H 12/12/18 20:09 Calcium 9.2 mg/dL (8.4-10.2) 12/12/18 20:09 0.30 mg/dL (0.1-1.2) 12/12/18 20:09 AST 11 units/L (5-40) 12/12/18 20:09 ALT 7 units/L (7-56) 12/12/18 20:09 64 units/L (35-129) 12/12/18 20:09 63 units/L (55-170) 12/13/18 04:53 CK-MB (CK-2) 1.4 ng/mL (0.0-4.0) 12/13/18 09:44 CK-MB (CK-2) Rel Index 2.3 (0-4) 12/13/18 04:53 < 0.010 ng/mL (0.00-0.029) 12/13/18 09:44 7.4 g/dL (6.3-8.2) 12/12/18 20:09 4.6 g/dL (3.9-5) 12/12/18 20:09 1.6 % 12/12/18 20:09 Colorless (Yellow) 12/12/18 21:27 Clear (Clear) 12/12/18 21:27 6.0 (5.0-7.0) 12/12/18 21:27 Ur Specific [place] 1.003 (1.003-1.030) 12/12/18 21:27 <15 mg/dl mg/dL (Negative) 12/12/18 21:27 Neg mg/dL (Negative) 12/12/18 21:27 Neg mg/dL (Negative) 12/12/18 21:27 Neg (Negative) 12/12/18 21:27 Neg (Negative) 12/12/18 21:27 Neg (Negative) 12/12/18 21:27 < 2.0 mg/dL (<2.0) 12/12/18 21:27 Ur Leukocyte Esterase Neg (Negative) 12/12/18 21:27 < 1.0 /HPF (0.0-6.0) 12/12/18 21:27 1.0 /HPF (0.0-6.0) 12/12/18 21:27 Active Medications - Current Medications Current Medications: Generic Name Dose Route Start Last Admin Trade Name Freq PRN Reason Stop Dose Admin Acetaminophen 650 mg 12/12/18 23:00 Tylenol PO Q4H PRN Headache Amlodipine Besylate 10 mg 12/13/18 10:00 12/13/18 09:49 Norvasc PO 10 mg DAILY GET Administration Aspirin 325 mg 12/13/18 10:00 12/13/18 09:49 Aspirin PO 325 mg QDAY GET Administration Aspirin 81 mg 12/14/18 10:00 Halfprin Ec PO DAILY [facility] Clopidogrel Bisulfate 75 mg 12/14/18 10:00 Plavix PO QDAY GET Heparin Sodium (Porcine) 5,000 unit 12/13/18 10:00 12/13/18 09:50 Heparin SUB-Q 5,000 unit Q12HR GET Administration Hydroxyurea 500 mg 12/13/18 10:00 Hydrea PO BID GET Miscellaneous Medication 200 mg 12/13/18 22:00 Labetalol 200mg Tab PO BID GET Miscellaneous Medication 50 mg 12/14/18 10:00 Spironolactone PO QDAY GET Miscellaneous Medication 1 each 12/13/18 10:54 Oxycodone Hcl/Acetaminophen [Percocet 10/325 Mg] PO TID PRN Pain Morphine Sulfate 2 mg 12/12/18 23:01 12/13/18 09:59 Morphine IV 2 mg Q3H PRN Administration Pain, Moderate (4-6) Nitroglycerin 0.5 inch 12/13/18 00:00 12/13/18 09:49 Nitro-Bid 2% TP 0.5 inch QIDNTG GET Administration Protocol Nitroglycerin 0.4 mg 12/12/18 23:00 Nitrostat SL .Q5MIN PRN Chest Pain Ondansetron HCl 4 mg 12/12/18 23:01 Zofran IV Q8H PRN Nausea And Vomiting
--- NOTE | 2018-12-13 13:45 | Consultation ---
History of Present Illness Consult date: 12/13/18 Consult reason: chest pain History of present illness: This is a 73 year old man who presents to this hospital with complaints of chest pain associated with elevated blood pressure. He describes the chest pain as mid-sternal pain with radiation to his neck. Patient reports symptoms are most common when his BP is elevated. Patient reports a systolic blood pressure of the 190's prior to coming to the emergency department. In 2012, patient underwent coronary angiogram which revealed non-obstructive CAD. Most recently he was hospitalized in 12/2017 due to chest pain and underwent MPI on 12/18/17 which revealed normal perfusion. Cycled cardiac enzymes are normal and his ECG is benign, a normal sinus rhythm. Medications and Allergies Allergies Allergy/AdvReac Type Severity Reaction Status Date / Time fentanyl [From Duragesic] AdvReac Vomiting Verified 12/12/18 20:05 Penicillins AdvReac Seizure Verified 12/12/18 20:05 Home Medications Medication Instructions Recorded Confirmed Last Taken Type Clopidogrel [Plavix] 75 mg PO QDAY 12/16/17 12/13/18 12/12/18 History Hydroxyurea [Hydrea] 500 mg PO BID 12/16/17 12/13/18 12/12/18 History amLODIPine [Norvasc] 10 mg PO DAILY 12/16/17 12/13/18 12/12/18 History Aspirin [Aspirin EC] 81 mg PO DAILY 08/13/18 12/13/18 12/12/18 History Oxycodone HCl/Acetaminophen 1 each PO TID PRN #20 tablet 08/14/18 12/13/18 12/12/18 Rx [Percocet 10/325 mg] Labetalol 200mg TAB 200 mg PO BID 12/13/18 12/13/18 12/12/18 History Spironolactone 50 mg PO QDAY 12/13/18 12/13/18 Unknown History Active Meds: Active Medications Acetaminophen (Tylenol) 650 mg PO Q4H PRN PRN Reason: Headache Aspirin (Aspirin) 325 mg PO QDAY [facility] Last Admin: 12/13/18 09:49 Dose: 325 mg Documented by: Aspirin (Halfprin Ec) 81 mg PO DAILY [facility] Chlorthalidone (Thalitone) 25 mg PO QDAY [facility] Clopidogrel Bisulfate (Plavix) 75 mg PO QDAY [facility] Heparin Sodium (Porcine) (Heparin) 5,000 unit SUB-Q Q12HR [facility] Last Admin: 12/13/18 09:50 Dose: 5,000 unit Documented by: Hydroxyurea (Hydrea) 500 mg PO BID GET Labetalol HCl (Normodyne) 300 mg PO BID [facility] Morphine Sulfate (Morphine) 2 mg IV Q3H PRN PRN Reason: Pain, Moderate (4-6) Last Admin: 12/13/18 09:59 Dose: 2 mg Documented by: Nifedipine (Procardia Xl) 60 mg PO Q12HR [facility] Nitroglycerin (Nitrostat) 0.4 mg SL .Q5MIN PRN PRN Reason: Chest Pain Ondansetron HCl (Zofran) 4 mg IV Q8H PRN PRN Reason: Nausea And Vomiting Oxycodone HCl (Roxicodone) 5 mg PO TID PRN PRN Reason: Pain, Moderate (4-6) Oxycodone/Acetaminophen (Percocet 5/325) 1 tab PO TID PRN PRN Reason: Pain, Moderate (4-6) Physical Examination Vital Signs Pulse Resp BP Pulse Ox 47 L 18 133/71 100 12/12/18 16:41 12/12/18 16:41 12/12/18 16:41 12/12/18 16:41 General appearance: no acute distress HEENT: Positive: PERRL Neck: Positive: trachea midline Cardiac: Positive: Reg Rate and Rhythm Lungs: Positive: Decreased Breath Sounds Neuro: Positive: Grossly Intact Extremities: Absent: edema Results 12/12/18 20:09 12/12/18 20:09 Cardiac Enzymes 12/12/18 12/13/18 12/13/18 Range/Units 20:09 00:20 04:53 AST 11 (5-40) units/L CK-MB (CK-2) 1.8 1.5 (0.0-4.0) ng/mL 12/13/18 Range/Units 09:44 AST (5-40) units/L CK-MB (CK-2) 1.4 (0.0-4.0) ng/mL Coagulation 12/12/18 Range/Units 20:09 PT 14.1 (12.2-14.9) Sec. INR 1.12 (0.87-1.13) APTT 32.7 (24.2-36.6) Sec. CBC 12/12/18 Range/Units 20:09 WBC 2.6 L (4.5-11.0) K/mm3 RBC 2.42 L (3.65-5.03) M/mm3 Hgb 10.8 L (11.8-15.2) gm/dl Hct 30.7 L (35.5-45.6) % Plt Count 412 (140-440) K/mm3 Lymph # 1.0 L (1.2-5.4) K/mm3 [place] # 0.3 (0.0-0.8) K/mm3 Eos # 0.0 (0.0-0.4) K/mm3 Baso # 0.0 (0.0-0.1) K/mm3 Comprehensive Metabolic Panel 12/12/18 Range/Units 20:09 Sodium 141 (137-145) mmol/L Potassium 3.7 (3.6-5.0) mmol/L Chloride 103.1 (98-107) mmol/L Carbon Dioxide 25 (22-30) mmol/L BUN 8 L (9-20) mg/dL Creatinine 1.4 (0.8-1.5) mg/dL Glucose 112 H (75-100) mg/dL Calcium 9.2 (8.4-10.2) mg/dL AST 11 (5-40) units/L ALT 7 (7-56) units/L Alkaline Phosphatase 64 (35-129) units/L Total Protein 7.4 (6.3-8.2) g/dL Albumin 4.6 (3.9-5) g/dL Assessment and Plan Chest pain Hypertension [facility] 12/2012 revealed non-obstructive CAD. MPI 12/2017 revealed normal perfusion.
[2018-12-13] MEDS: ROXICODONE PO PRN ×2 (14:58→19:57)
[2018-12-13] MEDS: PERCOCET 5/325 PO PRN ×2 (14:58→19:57)
--- NOTE | 2018-12-13 16:43 | Vascular Lab Report ---
Renal artery Ultrasound HISTORY: Hypertension. TECHNIQUE: Grayscale and color Doppler imaging performed. COMPARISON: CT abdomen report from 12/17/2017 without imaging. FINDINGS: The exam was overall limited because of overlying bowel gas. Peak systolic velocity within the proximal aorta is 92 cm/s. Right: Right kidney measures 9.5 cm in length with a simple cyst in the midpole measuring 2.6 cm in m aximal dimension. Resistive index is 0.71. The renal vein is patent. Maximal peak systolic velocity within the renal artery is seen within the distal segment measuring 46 cm/s. Please note that the pro ximal renal artery was not visualized. The renal artery to aortic ratio is less than 3.5. Left: Left kidney measures 7.7 cm in length with a simple cyst in the upper pole measuring 3.0 cm in maximal dimension. Resistive index is 0.73. The renal vein is patent. Maximal peak systolic velocit y within the renal artery is seen within the distal segment measuring 46 cm/s. Please note that the p roximal and renal artery was not visualized. The renal artery to aortic ratio is less than 3.5. IMPRESSION: 1. No renal artery stenosis. 2. Simple bilateral renal cysts. Signer Name: Bandar Gomez MD Signed: 12/13/2018 4:39 PM Workstation Name: [id number]
[2018-12-13] MEDS: HYDREA PO SCH ×2 (17:43→22:37)
[2018-12-13] MEDS ORDERED: NORMODYNE PO SCH (22:00)
[2018-12-13] MEDS ORDERED: LABETALOL 200 MG PO SCH (22:00)
[2018-12-13] MEDS ORDERED: PROCARDIA XL PO SCH (22:00)
[2018-12-13] MEDS: NORMODYNE PO SCH (22:32)
[2018-12-14] MEDS ORDERED: LEXISCAN IV ONE (07:09)
[2018-12-14] MEDS: ROXICODONE PO PRN ×2 (08:13→16:35)
[2018-12-14] MEDS: PERCOCET 5/325 PO PRN ×2 (08:14→16:35)
[2018-12-14] MEDS: HYDREA PO SCH (09:00)
[2018-12-14] MEDS: NORMODYNE PO SCH (09:00)
[2018-12-14] MEDS ORDERED: PROCARDIA XL PO SCH (10:00)
[2018-12-14] MEDS ORDERED: NON-FORMULARY (Spironolactone 50 MG) PO SCH (10:00)
[2018-12-14] MEDS ORDERED: PLAVIX PO SCH (10:00)
[2018-12-14] MEDS ORDERED: ALDACTONE PO SCH (10:00)
[2018-12-14] MEDS ORDERED: THALITONE PO SCH (10:00)
[2018-12-14] MEDS ORDERED: HALFPRIN EC PO SCH (10:00)
--- NOTE | 2018-12-14 10:30 | Progress Note ---
Assessment and Plan Assessment and plan: --Atypical chest pain; probably noncardiac Cardiac enzyme, echocardiogram, Patient had recent negative heart cath And negative stress test Stress test was canceled today, consult cardiology for further recommendation --Hypertension; uncontrolled, resume home antihypertensives When necessary medications --Ongoing tobacco use; smoking cessation counseling Nicotine patch as needed Supportive care --Dyslipidemia; continue statin --DVT prophylaxis; Lovenox Monitor closely and adjust management as needed Follow cardiology evaluation and recommendations Possible discharge in 1-2 days if stable Plan of care is reviewed with the patient and his nurse Hospitalist Physical - Constitutional Vitals: Temp Pulse Resp BP Pulse Ox 98.4 F 61 20 98/50 98 12/14/18 03:13 12/14/18 04:47 12/14/18 08:14 12/14/18 03:13 12/14/18 03:13 General appearance: Present: no acute distress, well-nourished Results - Labs CBC & Chem 7: 12/12/18 20:09 12/12/18 20:09 Labs: Laboratory Last Values WBC 2.6 K/mm3 (4.5-11.0) L 12/12/18 20:09 RBC 2.42 M/mm3 (3.65-5.03) L 12/12/18 20:09 Hgb 10.8 gm/dl (11.8-15.2) L 12/12/18 20:09 Hct 30.7 % (35.5-45.6) L 12/12/18 20:09 MCV 127 fl (84-94) H 12/12/18 20:09 MCH 45 pg (28-32) H 12/12/18 20:09 MCHC 35 % (32-34) H 12/12/18 20:09 RDW 16.4 % (13.2-15.2) H 12/12/18 20:09 Plt Count 412 K/mm3 (140-440) 12/12/18 20:09 Lymph % (Auto) 39.4 % (13.4-35.0) H 12/12/18 20:09 [place] % (Auto) 9.9 % (0.0-7.3) H 12/12/18 20:09 Eos % (Auto) 0.9 % (0.0-4.3) 12/12/18 20:09 Baso % (Auto) 0.9 % (0.0-1.8) 12/12/18 20:09 Lymph # 1.0 K/mm3 (1.2-5.4) L 12/12/18 20:09 [place] # 0.3 K/mm3 (0.0-0.8) 12/12/18 20:09 Eos # 0.0 K/mm3 (0.0-0.4) 12/12/18 20:09 Baso # 0.0 K/mm3 (0.0-0.1) 12/12/18 20:09 Seg Neutrophils % 48.9 % (40.0-70.0) 12/12/18 20:09 Seg Neutrophils # 1.3 K/mm3 (1.8-7.7) L 12/12/18 20:09 PT 14.1 Sec. (12.2-14.9) 12/12/18 20:09 INR 1.12 (0.87-1.13) 12/12/18 20:09 APTT 32.7 Sec. (24.2-36.6) 12/12/18 20:09 Sodium 141 mmol/L (137-145) 12/12/18 20:09 Potassium 3.7 mmol/L (3.6-5.0) 12/12/18 20:09 Chloride 103.1 mmol/L (98-107) 12/12/18 20:09 Carbon Dioxide 25 mmol/L (22-30) 12/12/18 20:09 17 mmol/L 12/12/18 20:09 BUN 8 mg/dL (9-20) L 12/12/18 20:09 1.4 mg/dL (0.8-1.5) 12/12/18 20:09 Estimated GFR > 60 ml/min 12/12/18 20:09 6 % 12/12/18 20:09 Glucose 112 mg/dL (75-100) H 12/12/18 20:09 Calcium 9.2 mg/dL (8.4-10.2) 12/12/18 20:09 0.30 mg/dL (0.1-1.2) 12/12/18 20:09 AST 11 units/L (5-40) 12/12/18 20:09 ALT 7 units/L (7-56) 12/12/18 20:09 64 units/L (35-129) 12/12/18 20:09 59 units/L (55-170) 12/13/18 09:44 CK-MB (CK-2) 1.4 ng/mL (0.0-4.0) 12/13/18 09:44 CK-MB (CK-2) Rel Index 2.3 (0-4) 12/13/18 09:44 < 0.010 ng/mL (0.00-0.029) 12/13/18 09:44 7.4 g/dL (6.3-8.2) 12/12/18 20:09 4.6 g/dL (3.9-5) 12/12/18 20:09 1.6 % 12/12/18 20:09 Colorless (Yellow) 12/12/18 21:27 Clear (Clear) 12/12/18 21:27 6.0 (5.0-7.0) 12/12/18 21:27 Ur Specific [place] 1.003 (1.003-1.030) 12/12/18 21:27 <15 mg/dl mg/dL (Negative) 12/12/18 21:27 Neg mg/dL (Negative) 12/12/18 21:27 Neg mg/dL (Negative) 12/12/18 21:27 Neg (Negative) 12/12/18 21:27 Neg (Negative) 12/12/18 21:27 Neg (Negative) 12/12/18 21:27 < 2.0 mg/dL (<2.0) 12/12/18 21:27 Ur Leukocyte Esterase Neg (Negative) 12/12/18 21:27 < 1.0 /HPF (0.0-6.0) 12/12/18 21:27 1.0 /HPF (0.0-6.0) 12/12/18 21:27 Active Medications - Current Medications Current Medications: Generic Name Dose Route Start Last Admin Trade Name Freq PRN Reason Stop Dose Admin Acetaminophen 650 mg 12/12/18 23:00 Tylenol PO Q4H PRN Headache Aspirin 325 mg 12/13/18 10:00 12/13/18 09:49 Aspirin PO 325 mg QDAY GET Administration Aspirin 81 mg 12/14/18 10:00 Halfprin Ec PO DAILY GET Chlorthalidone 25 mg 12/14/18 10:00 Thalitone PO QDAY [facility] Clopidogrel Bisulfate 75 mg 12/14/18 10:00 Plavix PO QDAY [facility] Heparin Sodium (Porcine) 5,000 unit 12/13/18 10:00 12/13/18 22:33 Heparin SUB-Q 5,000 unit Q12HR GET Administration Hydroxyurea 500 mg 12/13/18 10:00 12/13/18 22:37 Hydrea PO 500 mg BID [facility] Administration Labetalol HCl 300 mg 12/13/18 22:00 12/13/18 22:32 Normodyne PO 300 mg BID [facility] Administration Morphine Sulfate 2 mg 12/12/18 23:01 12/13/18 09:59 Morphine IV 2 mg Q3H PRN Administration Pain, Moderate (4-6) Nicotine 14 mg 12/14/18 10:00 Habitrol TD QDAY [facility] Nifedipine 60 mg 12/14/18 10:00 Procardia Xl PO QDAY [facility] Nitroglycerin 0.4 mg 12/12/18 23:00 Nitrostat SL .Q5MIN PRN Chest Pain Ondansetron HCl 4 mg 12/12/18 23:01 Zofran IV Q8H PRN Nausea And Vomiting Oxycodone HCl 5 mg 12/13/18 11:14 12/14/18 08:13 Roxicodone PO 5 mg TID PRN Administration Pain, Moderate (4-6) Oxycodone/Acetaminophen 1 tab 12/13/18 11:13 12/14/18 08:14 Percocet 5/325 PO 1 tab TID PRN Administration Pain, Moderate (4-6)
[2018-12-14 10:44] VITALS: BP 133/56
--- NOTE | 2018-12-14 11:44 | Progress Note ---
Assessment and Plan - Patient Problems (1) Uncontrolled hypertension Current Visit: Yes Status: Acute Plan to address problem: We'll continue medical therapy, the patient's renovascular Doppler exam was negative, and prior outpatient 24-hour urine abdominal CAT scans were negative for pheochromocytoma. (2) Chest pain Current Visit: Yes Status: Acute Plan to address problem: Exercise thallium test completed today, thallium images pending. Subjective Date of service: 12/14/18 Interval history: The patient performed a stress thallium today during which she exercised for 7 minutes of Mark protocol, no chest pain, test was stopped for fatigue. There was no ST changes of ischemia. Thallium images are pending for final interpretation of this test. On current medications, his blood pressure has remained in the 130s to 140s systolic, with no severe spikes. Objective Vital Signs Temp Pulse Resp BP Pulse Ox 12/14/18 09:44 133/56 12/14/18 09:43 137/54 12/14/18 09:42 141/56 12/14/18 09:41 147/69 12/14/18 09:40 164/74 12/14/18 09:22 137/62 12/14/18 08:14 20 12/14/18 08:13 20 12/14/18 07:28 97.7 F 57 L 18 132/59 100 12/14/18 04:47 61 12/14/18 03:13 98.4 F 61 16 98/50 98 12/13/18 23:00 98.3 F 58 L 20 112/54 100 12/13/18 22:32 58 L 113/60 12/13/18 19:57 20 12/13/18 19:05 98.5 F 58 L 18 113/60 100 12/13/18 16:04 98.6 F 59 L 18 118/53 99 12/13/18 12:19 98.2 F 69 18 119/62 100 - Physical Examination General: No Apparent Distress HEENT: Positive: PERRL Neck: Positive: trachea midline Cardiac: Positive: Reg Rate and Rhythm Lungs: Positive: clear to auscultation Neuro: Positive: Grossly Intact Abdomen: Positive: Soft Skin: Positive: Clear Extremities: Absent: edema
[2018-12-14] MEDS: ASPIRIN PO SCH ×2 (11:58→12:09)
[2018-12-14] MEDS: HABITROL TD SCH ×2 (11:58→12:11)
[2018-12-14] MEDS: HEPARIN SUB-Q SCH (12:00)
[2018-12-14] MEDS: MORPHINE IV PRN (12:21)
--- NOTE | 2018-12-14 14:12 | Discharge Summary ---
Providers - Providers Date of Admission: 12/12/18 22:53 Date of discharge: 12/14/18 Attending physician: KAMRYN YANEZ 12/13/18 10:56 Consult to Physician [CONS] Routine Comment: Consulting Provider: ABDIFATAH MOSS Physician Instructions: Reason For Exam: chest pain Primary care physician: [facility], [place] Hospitalization Reason for admission: Chest pain Condition: Stable Pertinent studies: Chest x-ray no acute abnormality Renal ultrasound; normal artery stenosis, simple bilateral renal cysts Stress test normal study CT head; no acute abnormality noted Hospital course: 73-year-old -Citizen Of [place] male patient with significant past medical history of hypertension was admitted through emergency room with chest pain and uncontrolled blood pressures Patient was symptomatically managed him ice cream 3 was negative however view of patient's risk factors patient was evaluated by cardiology subsequently underwent stress test which was negative for reversible ischemia Cardiology optimized patient's blood pressure medications, pressures were reason ably controlled today Today patient is comfortable in no new complaints vital signs stable physical examination and unremarkable Cleared by cardiology to CA on new blood pressure medications, and follow up in the office for scheduling Patient is hemodynamically and clinically stable for discharge Discharge diagnoses; --Atypical chest pain; probably noncardiac Stress test is negative --GERD probably the cause of chest pain; Advised Protonix; --Hypertension; medications optimized Blood pressure stable --Ongoing tobacco use; smoking cessation counseling Nicotine patch as needed Patient is hemodynamically and clinically stable at discharge Disposition: [facility] TO HOME OR SELFCARE Time spent for discharge: 32 min Core Measure Documentation - Palliative Care Palliative Care/ Comfort Measures: Not Applicable - Core Measures Any of the following diagnoses?: none Exam - Constitutional Vitals: Temp Pulse Resp BP Pulse Ox 97.7 F 57 L 20 133/56 100 12/14/18 07:28 12/14/18 07:28 12/14/18 12:21 12/14/18 09:44 12/14/18 07:28 General appearance: Present: no acute distress, well-nourished - EENT Eyes: Present: PERRL, EOM intact - Neck Neck: Present: supple, normal ROM - Respiratory Respiratory effort: normal Respiratory: bilateral: diminished, negative: rales, rhonchi, wheezing - Cardiovascular Rhythm: regular Heart Sounds: Present: S1 & S2 - Extremities Extremities: no ischemia, No edema - Abdominal General gastrointestinal: Present: soft, non-tender, non-distended, normal bowel sounds - Integumentary Integumentary: Present: clear, warm - Musculoskeletal Musculoskeletal: strength equal bilaterally - Psychiatric Psychiatric: appropriate mood/affect, cooperative - Neurologic Neurologic: CNII-XII intact Plan Activity: advance as tolerated Diet: other (cardiac diet) Additional Instructions: If you have Chest pain or shortness of breath contact M.D. or go to emergency room Follow up with: PERFECTO LUNA MD [Primary Care Provider] - 3-5 Days YENI MARISCAL MD [Staff Physician] - 7 Days Prescriptions: Labetalol [Labetalol 100mg TAB] 300 mg PO BID #60 tablet NIFEdipine XL [Procardia Xl] 60 mg PO QDAY #30 tablet Chlorthalidone [Thalitone] 25 mg PO QDAY #30 tablet
--- NOTE | 2018-12-15 10:09 | Treadmill Report ---
THALLIUM STRESS TEST LEFT VENTRICLE: Left ventricular chamber size is within normal limits. Perfusion study demonstrates homogeneous uptake of the tracer in all segments, no significant defects identified. Gated analysis demonstrates normal left ventricular systolic function, ejection fraction 55%. CONCLUSION: Normal myocardial perfusion study. JOB# [id number] CA/NTS
== END 2018-12-14 18:59 | disposition home or self-care (01) | DRG 392 ==
LOC: ED 19:44 → 4A 22:53
PROVIDERS: ADMIT Internal Medicine; ATTEND Internal Medicine
DX: K21.9 Gastro-esophageal reflux disease without esophagitis (principal); I10 Essential (primary) hypertension; N28.1 Cyst of kidney, acquired; R51 Headache; E78.5 Hyperlipidemia, unspecified; M19.90 Unspecified osteoarthritis, unspecified site; F17.210 Nicotine dependence, cigarettes, uncomplicated; I25.10 Atherosclerotic heart disease of native coronary artery without angina pectoris; Z71.6 Tobacco abuse counseling; Z79.899 Other long term (current) drug therapy; Z79.82 Long term (current) use of aspirin; Z88.0 Allergy status to penicillin
CPT/HCPCS: 36415; 70450; 71045; 78452; 80053; 81001; 82550; 82553; 84484; 85025; 85610; 85730; 93005; 93010; 93017; 93975; G0378; A9502; J1644; J2270; J2405; J2785

== ENCOUNTER 2018-12-28 06:25 | Day surgery (SDC) | payer MEDICARE ==
[2018-12-28 07:32] LABS: Basophils % (Auto) 0.4 % (0.0-1.8); Hematocrit 29.5 % (35.5-45.6); Hemoglobin 10.5 gm/dl (11.8-15.2); Lymphocytes # (Auto) 1.1 K/mm3 (1.2-5.4); Lymphocytes % (Auto) 37.6 % (13.4-35.0); Mean Corpuscular HGB Conc 36 % (32-34); Monocytes # (Auto) 0.4 K/mm3 (0.0-0.8); Monocytes % (Auto) 12.3 % (0.0-7.3); Red Blood Count 2.37 M/mm3 (3.65-5.03); Red Cell Distribution Width 15.1 % (13.2-15.2)
[2018-12-28 07:41] LABS: Mean Corpuscular Volume 125 fl (84-94); Platelet Count 82 K/mm3 (140-440)
[2018-12-28 07:42] LABS: INR 1.04 (0.87-1.13)
[2018-12-28 07:43] LABS: Partial Thromboplastin Time 27.9 Sec. (24.2-36.6)
[2018-12-28 07:44] LABS: BUN/Creatinine Ratio 8; Blood Urea Nitrogen 11 mg/dL (9-20); Calcium 9.7 mg/dL (8.4-10.2); Hemolysis Index 7
[2018-12-28] MEDS ORDERED: ECOTRIN PO ONE (08:00)
[2018-12-28] MEDS: NACL 0.9% 500 ML 500 ML IV SCH ×2 (08:19→10:44)
[2018-12-28] MEDS ORDERED: K-DUR PO NR (08:22)
[2018-12-28] MEDS ORDERED: K-DUR PO ONE (08:25)
[2018-12-28] MEDS ORDERED: KCL 10MEQ/100ML 10 MEQ/100 ML BAG IV ONE ×2 (09:00→11:30)
[2018-12-28] MEDS ORDERED: HEPARIN/NS 5000 UNIT/500ML(CATH LAB) 1,000 ML IR ONE (10:14)
[2018-12-28] MEDS ORDERED: SUBLIMAZE ONE (10:14)
[2018-12-28] MEDS ORDERED: HEPARIN 10,000 UNITS/10 ML ONE (10:14)
[2018-12-28] MEDS ORDERED: CALAN ONE (10:15)
[2018-12-28] MEDS ORDERED: NITROGLYCERIN SYRINGE 0 ML ONE (10:15)
[2018-12-28] MEDS ORDERED: XYLOCAINE 2% INFILTRATI ONE (10:15)
[2018-12-28] MEDS: VERSED ONE ×2 (10:43→11:05)
[2018-12-28] MEDS ORDERED: MORPHINE ONE (11:09)
[2018-12-28 11:42] LABS: BUN/Creatinine Ratio 8; Blood Urea Nitrogen 9 mg/dL (9-20); Hemolysis Index 8
[2018-12-28] MEDS ORDERED: CATAPRES PO PRN (11:44)
--- NOTE | 2018-12-28 11:47 | Discharge Summary ---
Short Stay Discharge Plan Activity: advance as tolerated Weight Bearing Status: Partial Weight Bearing Diet: low fat, low cholesterol, low salt Wound: keep clean and dry Special Instructions: no heavy lifting (3 days) Follow up with: MARAH HOLLINGSWORTH MD [Primary Care Provider] - 7 Days YENI MARISCAL MD [Staff Physician] - 7 Days RADHA ARDON MD [Referring] - 7 Days
--- NOTE | 2018-12-28 11:49 | Cardiac Catherization Report ---
CARDIAC CATHETERIZATION REPORT REASON FOR PROCEDURE: The patient is a 73-year-old man with a history of peripheral arterial disease, severe labile hypertension, who was admitted with chest pain. Due to recurrent chest pain, he was recommended to undergo a cardiac catheterization and diagnostic coronary angiography, plus bilateral renal angiography for assessment of secondary hypertension. On arrival for the procedure today, the patient's laboratory values were notably abnormal including low potassium of 2.1 and thrombocytopenia of 82,000. We replaced the potassium both orally and by IV and discussed his thrombocytopenia with his shopping investigator. 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 The shopping investigator, Dr. Miranda recommended stoppage of his hydroxyurea at this time and after the procedure will see the patient for followup of the platelet level on the next office visit next week. PROCEDURES: 1. Left heart catheterization. 2. Selective left and right coronary angiography. 3. Left ventricle angiography. 4. Bilateral renal angiography. SEDATION TIME START: 1043 hours. SEDATION END TIME: 1119 hours. DESCRIPTION OF PROCEDURE: The patient was prepped and draped in a sterile fashion after informed consent. Right femoral artery was entered using Seldinger technique, followed by placement of a 6-Sloven[place] sheath. Selective left and right coronary angiography was performed using #4 right and left Ceasar catheters. The right Ceasar was used for bilateral selective renal angiography. We then exchanged for a pigtail catheter, which was used for left ventricular angiography. The catheters were then removed, sheath removed. Hemostasis over the right femoral artery site was performed using manual compression. The patient was returned to the post-procedure unit in stable condition. There were no complications. FINDINGS: HEMODYNAMICS: Left ventricular end-diastolic pressure was 17 following coronary angiography. Ascending aortic pressure was 140/50. There was no significant pressure gradient on pullback across the aortic valve. CORONARY ANGIOGRAPHY: The left main coronary artery was free of significant disease. The left anterior descending artery and its diagonal branches were similarly free of significant disease. The circumflex artery was a large dominant vessel. There was irregular plaque in the proximal to mid AV groove segment, with up to 20% luminal stenosis. Following that there was a more significant lesion in the distal vessel leading to the left posterior descending branch. This lesion was a long 50-60% stenosis of the distal circumflex before the left posterior descending artery. The right coronary artery was a small nondominant vessel and free of significant disease. Left ventricular systolic function was normal, ejection fraction estimated at 60%. RENAL ANGIOGRAPHY: Bilateral renal angiography revealed widely patent bilateral renal arteries with no lesions noted. CONCLUSIONS: 1. 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 2. Left circumflex dominant system. 3. Normal left ventricular systolic function, ejection fraction 60%. 4. Normal bilateral renal arteries. RECOMMENDATIONS: Aggressive risk factor modification and medical therapy for nonobstructive circumflex artery disease. Aggressive optimal medical management for hypertension. [facility]# [id number] CA/NTS
[2018-12-28] MEDS ORDERED: NACL 0.9% 1000 ML 1,000 ML IV SCH (12:00)
[2018-12-28] MEDS ORDERED: PERCOCET 5/325 PO ONE (13:43)
[2018-12-28] MEDS ORDERED: PERCOCET 5/325 ONE (13:48)
[2018-12-28 16:16] VITALS: BP 114/60
== END 2018-12-28 16:30 | disposition home or self-care (01) ==
LOC: CATHLABREC 06:25
PROVIDERS: ATTEND Internal Medicine Cardiovascular Disease
DX: I25.10 Atherosclerotic heart disease of native coronary artery without angina pectoris (principal); I77.89 Other specified disorders of arteries and arterioles; D69.6 Thrombocytopenia, unspecified; I73.9 Peripheral vascular disease, unspecified; I10 Essential (primary) hypertension; M19.90 Unspecified osteoarthritis, unspecified site; F17.210 Nicotine dependence, cigarettes, uncomplicated; Z98.890 Other specified postprocedural states; Z88.0 Allergy status to penicillin; Z79.82 Long term (current) use of aspirin; Z88.8 Allergy status to other drugs, medicaments and biological substances
CPT/HCPCS: 36252; 36415; 80048; 85025; 85610; 85730; 93005; 93010; 93458; 96365; 96366; 99156; 99157; C1894; J1644; J2250; J2270; J3480; J7030; J7040; J3010; Q9967

== ENCOUNTER 2019-01-24 18:54 | Emergency (ER) | payer MEDICARE ==
--- NOTE | 2019-01-24 19:40 | Emergency Department Report ---
Blank Doc - Documentation Documentation: This is a 73-year-old male that presents with nose bleed. Patient is on Plavix. This initial assessment/diagnostic orders/clinical plan/treatment(s) is/are subject to change based on patient's health status, clinical progression and re- assessment by fellow clinical providers in the ED. Further treatment and workup at subsequent clinical providers discretion. Patient/guardians urged not to elope from the ED as their condition may be serious if not clinically assessed and managed. Initial orders include: 1- Patient sent to MAIN ED for further evaluation and treatment 2- labs
[2019-01-24 19:42] VITALS: BP 122/63
[2019-01-24 20:28] LABS: Basophils % (Auto) 0.8 % (0.0-1.8); Eosinophils # (Auto) 0.1 K/mm3 (0.0-0.4); Eosinophils % (Auto) 1.7 % (0.0-4.3); Hematocrit 29.4 % (35.5-45.6); Hemoglobin 10.4 gm/dl (11.8-15.2); Lymphocytes # (Auto) 0.9 K/mm3 (1.2-5.4); Lymphocytes % (Auto) 29.9 % (13.4-35.0); Mean Corpuscular HGB Conc 35 % (32-34); Monocytes # (Auto) 0.5 K/mm3 (0.0-0.8); Monocytes % (Auto) 15.4 % (0.0-7.3); Platelet Count 173 K/mm3 (140-440); Red Blood Count 2.43 M/mm3 (3.65-5.03); Red Cell Distribution Width 15.7 % (13.2-15.2)
[2019-01-24 20:29] LABS: Mean Corpuscular Volume 121 fl (84-94)
[2019-01-24 20:45] LABS: INR 1.07 (0.87-1.13)
[2019-01-24 20:46] LABS: Partial Thromboplastin Time 28.7 Sec. (24.2-36.6)
== END 2019-01-25 01:01 | disposition left against medical advice (07) ==
LOC: ED 18:54
DX: R04.0 Epistaxis (principal); Z53.21 Procedure and treatment not carried out due to patient leaving prior to being seen by health care provider
CPT/HCPCS: 36415; 85025; 85610; 85730